=== PATIENT | male | born 1980 | race African-American/Black ===

== ENCOUNTER 2019-01-09 18:19 | Emergency (ER) | payer OTHER, SELFPAY ==
[~2019-01-09 18:19] MED LIST: Iopamidol 370 76% 100 ML VIAL ONE
[2019-01-09 19:03] LABS: #Basophils 0.1 thou/uL (0.0-0.2); #Eosinphils 0.1 thou/uL (0.0-0.7); #Lymphocytes 2.5 thou/uL (1.20-3.40); #Monocytes 0.5 thou/uL (0.11-0.59); #Neutrophils 2.7 thou/uL (1.40-6.50); %Basophils 1.7 % (0.0-1.0); %Eosinophils 2.3 % (0.0-10.0); %Lymphocytes 42.3 % (21.0-51.0); %Monocytes 8.2 % (0.0-10.0); %Neutrophils 45.4 % (42.0-75.0); Hemoglobin 13.9 g/dL (14.0-18.0); Mean Corpuscular HGB CONC 31.8 g/dL (32.0-36.0); Mean Corpuscular Hemoglobin 28.7 pg (27.0-31.0); Mean Platelet Volume 5.9 fL (7.4-10.4); Platelet Count 286 thou/uL (130-400); RBC Distribution Width 13.4 % (11.5-14.5); Red Blood Cell (RBC) Count 4.85 mill/uL (4.70-6.10); White Blood Cell (WBC) Count 5.9 thou/uL (4.8-10.8)
[2019-01-09 19:13] LABS: INR-International Normal Ratio 0.9; Prothrombin Time 12.3 SEC (12.0-14.7)
[2019-01-09 19:23] LABS: ALT (SGPT) 18 U/L (8-55); AST (SGOT) 23 U/L (5-34); Albumin 3.8 g/dL (3.5-5.0); Alkaline Phosphatase 62 U/L (40-110); Anion Gap 13 mmol/L (10-20); BUN (Urea Nitrogen) 8 mg/dL (8.9-20.6); Bilirubin, Total 0.2 mg/dL (0.2-1.2); Calc. Creatinine Clearance 0 mL/min (70-130); Calcium 8.5 mg/dL (7.8-10.44); Carbon Dioxide 26 mmol/L (22-29); Chloride 107 mmol/L (98-107); Estimated GFR-MDRD Greater than 90; Globulin 2.8 g/dL (2.4-3.5); Glucose 77 mg/dL (70-105); Potassium 4.5 mmol/L (3.5-5.1); Protein, Total 6.6 g/dL (6.0-8.3); Sodium 141 mmol/L (136-145)
--- NOTE | 2019-01-09 19:31 | CT ---
CT OF BRAIN PERFORMED WITHOUT CONTRAST ENHANCEMENT: 01/09/19 HISTORY: Head injury. The ventricular and cisternal system is within normal limits. There is no signs of intracerebral hemo rrhage or extra-axial fluid collections. The mastoid air cells and visualized sinuses are clear. IMPRESSION: No acute intracranial abnormalities. POS: [facility]
--- NOTE | 2019-01-09 19:32 | CT ---
CT OF THE CERVICAL SPINE WITHOUT CONTRAST: 01/09/19 INDICATION: History of neck injury. COMPARISON: None. FINDINGS: No definite acute fracture or subluxation is evident. Osseous central canal is preserved. Craniocervi ariela junction is normal appearing. Prevertebral soft tissues are normal appearing. Lung apices are mario ar. IMPRESSION: No acute abnormality. POS: [facility]
--- NOTE | 2019-01-09 19:37 | CT ---
CT OF THE CHEST, ABDOMEN AND PELVIS WITH IV CONTRAST: 01/09/19 INDICATION: History of injury. COMPARISON: None. FINDINGS: CHEST: No focal contusion, pleural effusion or pneumothorax is evident. Heart and great vessels appear withi n normal limits. ABDOMEN: The liver, spleen, pancreas, adrenal glands and kidneys appear within normal limits. There is a small tiny 3 mm nonobstructing calculus within the superior pole of the right kidney. No free fluid or enl arged lymph nodes are evident. There is a moderate amount of retained stool within the colon. The danny dder, rectum, and perirectal soft tissues are unremarkable appearing. OSSEOUS STRUCTURES: No definite acute osseous abnormality is evident. No acute osseous abnormality is seen involving the thoracolumbar spine. IMPRESSION: No acute traumatic injury seen involving the chest, abdomen, and pelvis. Right nephrolithiasis. POS: [facility]
== END 2019-01-09 20:23 | disposition home or self-care (01) ==
LOC: MADERS 18:19
DX: S13.9XXA Sprain of joints and ligaments of unspecified parts of neck, initial encounter (principal); S20.219A Contusion of unspecified front wall of thorax, initial encounter; F17.210 Nicotine dependence, cigarettes, uncomplicated; V89.2XXA Person injured in unspecified motor-vehicle accident, traffic, initial encounter
CPT/HCPCS: 70450; 71260; 72125; 74177; 80053; 85025; 85610; G0390; Q9967